=== PATIENT | female | born 2000 | race Caucasian/White ===

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

== ENCOUNTER 2019-01-19 09:16 | Day surgery (SDC) | payer BC ==
[~2019-01-19] VITALS: Ht 167.6 cm; Wt 56.6 kg
[~2019-01-19 09:16] MED LIST changes: +BUPR75TA5 PO; +FLUC150T PO; +KETO2CR EXT; +LIDOCAINE 1% MDV 20ML VIAL SQ PRN; +LIDOCAINE 2% INJ 100 MG/5 ML SDV (FOR ANES.) As Ordered ONE; +LR 1,000 ML IV ONE; +MIDAZOLAM INJ 2 MG/2 ML VIAL (J2250) As Ordered ONE; +NEXP1IMP SC; +ONDANSETRON 4MG/2ML VIAL (J2405) As Ordered ONE; +PROPOFOL 200 MG/20 ML VIAL As Ordered ONE; +ROCURONIUM BROMIDE 50 MG/5 ML VIAL As Ordered ONE; +dexameTHASONE 4 MG/ML 1ML VIAL (J1100) As Ordered ONE; +dexameTHASONE 4 MG/ML 1ML VIAL (J1100) IV ONE; +fentaNYL 100 MCG/2 ML INJECTION (J3010) As Ordered ONE
[2019-01-19 10:04] LABS: URINE PREG TEST NEGATIVE (NEGATIVE)
[2019-01-19] MEDS ORDERED: OXYMETAZOLINE NASAL SPRAY (AFRIN) As Ordered ONE (12:03)
[2019-01-19] MEDS ORDERED: dexameTHASONE 4 MG/ML 1ML VIAL (J1100) As Ordered ONE (12:40)
[2019-01-19] MEDS ORDERED: METOCLOPRAMIDE INJ 10MG/2ML VIAL (J2765) As Ordered ONE (12:41)
[2019-01-19] MEDS ORDERED: ONDANSETRON 4MG/2ML VIAL (J2405) IV PRN (13:15)
[2019-01-19] MEDS ORDERED: PERCOCET 5MG/325MG TAB PO PRN (13:15)
[2019-01-19] MEDS ORDERED: LR 1,000 ML IV SCH ×2 (13:15)
[2019-01-19] MEDS ORDERED: fentaNYL 100 MCG/2 ML INJECTION (J3010) IV PRN (13:15)
[2019-01-19] MEDS ORDERED: PERCOCET 5MG/325MG TAB As Ordered ONE (13:16)
[2019-01-19 16:20] VITALS: BP 124/55
== END 2019-01-19 16:25 | disposition home or self-care (01) ==
LOC: M SDC 09:16
PROVIDERS: ATTEND Otolaryngology
DX: J35.1 Hypertrophy of tonsils (principal); R19.6 Halitosis; R21 Rash and other nonspecific skin eruption; Z79.899 Other long term (current) drug therapy
CPT/HCPCS: 42826; 84703; 88302; J1100; J2250; J2405; J2765; J3010